=== PATIENT | female | born 1975 | race Caucasian/White ===

== ENCOUNTER 2019-05-29 09:35 | Emergency (ER) | payer MEDICAID ==
[2019-05-29 09:50] VITALS: BP 147/95
[2019-05-29] MEDS ORDERED: PROPARACAINE 0.5% OPHTH DROPS 15 ML LEFTEYE STA (11:25)
--- NOTE | 2019-05-29 12:20 | ED Physician Documentation ---
PD HPI OPHTHO - Stated complaint Stated Complaint: LT EYE PX - Chief complaint Chief Complaint: Heent - History obtained from History obtained from: Patient (43-year-old woman with 1 week history of redness and irritation as well as light sensitivity of the left eye only. Its not associated with a foreign body sensation or URI symptoms. Photophobia is prominent. There was no trauma. She does not wear contacts. Her vision is unaffected. There is not much discharge.) Review of Systems Constitutional: denies: Fever, Chills Eyes: reports: Photophobia, Irritation. denies: Loss of vision, Decreased vision, Discharge Ears: denies: Loss of hearing, Ear pain, Drainage/discharge Nose: denies: Rhinorrhea / runny nose, Congestion PD PAST MEDICAL HISTORY - Past Medical History Past Medical History: Yes - Present Medications Home Medications: Ambulatory Orders Medication Instructions Recorded Confirmed Hydrocodone/Acetaminophen 1 - 2 each PO Q6H PRN #7 tablet 05/29/19 [Hydrocodon-Acetaminophen 5-325] prednisoLONE 1% OPHTH DROPS [Pred 1 drops LEFTEYE QID #1 bottle 05/29/19 Forte 1% Ophth Drops] - Allergies Allergies/Adverse Reactions: Allergies Allergy/AdvReac Type Severity Reaction Status Date / Time No Known Drug Allergies Allergy Verified 05/29/19 09:49 - Social History Does the pt smoke?: No Smoking Status: Never smoker PD ED PE NORMAL - Vitals Vital signs reviewed: Yes - General General: Alert and oriented X 3, No acute distress - HEENT HEENT: Other (Pupils are equally round and reactive to light extraocular movements are intact. She has no consensual photophobia. She does have a ciliary flush. Quintin-Pen is 27. There is no fluoresein uptake. No cell or flare on slit lamp exam.) - Neuro Neuro: Alert and oriented X 3, Normal speech Results - Vitals Vitals: Vital Signs - 24 hr 05/29/19 09:48 Temperature 36.4 C L Heart Rate 78 Respiratory 18 Rate Blood Pressure 147/95 H O2 Saturation 100 PD MEDICAL DECISION MAKING - ED course ED course: Presentation most consistent with very mild or early uveitis. There is no cell or flare but it seems more pronounced than just a simple conjunctivitis. Quintin- Pen is slightly elevated but it is inconsistent with symptomatic acute angle- closure glaucoma as the level is too low. Her pupil was also reactive. She is started on Pred forte and cyclopentolate and asked to see an sand system operator tomorrow Departure - Departure Disposition: 01 Home, Self Care Clinical Impression: Uveitis of left eye Condition: Good Record reviewed to determine appropriate education?: Yes Instructions: ED Uveitis Follow-Up: Rick Davila MD [Provider Admit Priv/Credential] - Tomorrow Prescriptions: Hydrocodone/Acetaminophen [Hydrocodon-Acetaminophen 5-325] 1 - 2 each PO Q6H PRN #7 tablet PRN Reason: pain prednisoLONE 1% OPHTH DROPS [Pred Forte 1% Ophth Drops] 1 drops LEFTEYE QID #1 bottle Comments: The presentation is most consistent with uveitis. I would like you to see an eye doctor tomorrow to confirm and clarify the ongoing treatment. Call Dr. Davila's office at 8 AM tomorrow. Return for new worsening symptoms.
[2019-05-29] MEDS ORDERED: prednisoLONE 1% OPHTH DROPS 75 DROPS/5 ML BOTTLE LEFTEYE STA (12:36)
[2019-05-29] MEDS ORDERED: CYCLOPENTOLATE 1% OPHTH DROPS 2 ML LEFTEYE ONE (12:36)
== END 2019-05-29 13:09 | disposition home or self-care (01) ==
LOC: ED 09:35
DX: H20.9 Unspecified iridocyclitis (principal)
CPT/HCPCS: 99282; 99283; A9270; J3490

== ENCOUNTER 2019-08-31 06:35 | Emergency (ER) | payer MEDICAID ==
--- NOTE | 2019-08-31 07:06 | ED Physician Documentation ---
PD HPI SKIN - Stated complaint Stated Complaint: BUTTOCK SORE - Chief complaint Chief Complaint: Wound - History obtained from History obtained from: Patient - History of Present Illness Timing - onset: How many weeks ago (She noted onset of area of redness and swelling on the right gluteal area and then another one starting on the left and then a third 1 starting just yesterday. These are sites where she had done injection of heroin. She states she had used clean needles she thought but did reuse Bernardo couple of times. She does not clean her skin ahead of time necessarily. The initial infection area has gotten much more painful and swollen without any drainage. She denies systemic symptoms of fever chills nausea vomiting or aches) Timing - duration: Weeks (1) Timing - details: Gradual onset, Still present Location: Other (both buttocks, right worse than left.) Quality / character: Painful, Discolored, Swelling. No: Draining Associated symptoms: Myalgias. No: Fever Contributing factors: Other (subcut/IM injecting of heroin herself.). No: Recent illness Similar symptoms before: Has not had sx before Review of Systems Constitutional: reports: Myalgias. denies: Fever, Chills, Fatigue Cardiac: denies: Chest pain / pressure, Palpitations Respiratory: denies: Dyspnea, Cough GI: denies: Abdominal Pain, Nausea, Vomiting PD PAST MEDICAL HISTORY - Past Medical History Past Medical History: No - Present Medications Home Medications: Ambulatory Orders Medication Instructions Recorded Confirmed Hydrocodone/Acetaminophen 1 - 2 each PO Q6H PRN #7 tablet 05/29/19 [Hydrocodon-Acetaminophen 5-325] prednisoLONE 1% OPHTH DROPS [Pred 1 drops LEFTEYE QID #1 bottle 05/29/19 Forte 1% Ophth Drops] Chlorhexidine Gluconate [Hibiclens] 15 ml TP DAILY #236 ml 08/31/19 Sulfamethox/Trimeth 800/160 1 each PO BID #14 tablet 08/31/19 [Bactrim Ds 800/160] - Allergies Allergies/Adverse Reactions: Allergies Allergy/AdvReac Type Severity Reaction Status Date / Time No Known Drug Allergies Allergy Verified 05/29/19 09:49 - Social History Does the pt smoke?: No Smoking Status: Never smoker PD ED PE NORMAL - Vitals Vital signs reviewed: Yes - General General: Alert and oriented X 3, No acute distress (but has marked tenderness of right gluteal abscess. Less so left gluteal. ), Well developed/nourished - Cardiac Cardiac: RRR, No murmur - Respiratory Respiratory: Clear bilaterally - Abdomen Abdomen: Soft, Non tender - Derm Derm: Normal color, Warm and dry, Other (gluteal with 3 sites of infection. Worst is right buttock laterally with firm, raised, tender area of infection, feels like abscess, 3-4 cm diameter, with redness and swelling surrounding that as well. Left lateral gluteal area with smaller but still raised and fluctuant area of tenderness, with also surrounding redness/swelling. Anterior to that is a nonfluctuant, red, tender area of inflammation and warmth. ) Results - Vitals Vitals: Vital Signs - 24 hr 08/31/19 08/31/19 06:37 08:06 Temperature 36.6 C 36.5 C Heart Rate 85 79 Respiratory 15 17 Rate Blood Pressure 131/79 H 128/82 H O2 Saturation 100 99 Oxygen O2 Source Room air - Labs Labs: Microbiology 08/31/19 07:46 Wound Culture - Preliminary Buttock - Right Procedures - Abscess I&D (location) buttocks both sides Preparation: Confirmed with ultrasound, Lidocaine 1%, With epi, Other (IM meds for pain ahead of it.) Incision: Incised with scalpel, Purulent drainage, Irrigated, Culture obtained. No: Packed Other: Pt tolerated well, Dressing applied, Antibiotic prescribed PD MEDICAL DECISION MAKING - ED course Complexity details: considered differential (She has 3 separate infection sites, 2 of which have local abscess formation and I did an incision and drainage. She states she just started skin popping for the heroin use. I asked if she wanted social work to talk with her about program information and resources but she said she knew of a treatment program already but was not sure if she was quite ready to stop. I encouraged her to stop heroin use.), d/w patient Departure - Departure Disposition: 01 Home, Self Care Clinical Impression: Abscess of buttock Condition: Stable Record reviewed to determine appropriate education?: Yes Instructions: ED Abscess IandD Prescriptions: Chlorhexidine Gluconate [Hibiclens] 15 ml TP DAILY #236 ml Sulfamethox/Trimeth 800/160 [Bactrim Ds 800/160] 1 each PO BID #14 tablet Comments: Cleanse the infection areas couple of times a day with soap and water. You can soak in warm water as well and today and tomorrow try to promote drainage from t he incision holes. Bactrim antibiotic twice daily for a week. Recheck if not improved well over the next couple of days. Chlorhexidine body wash from head to toe in the shower to reduce germs on the surface overall. Particular cleansing in the infection areas. Seek assistance for drug cessation. Discharge Date/Time: 08/31/19 08:20
[2019-08-31] MEDS ORDERED: oxyCODONE 5 MG TABLET PO STA (07:16)
[2019-08-31] MEDS ORDERED: IBUPROFEN 800 MG TABLET PO STA (07:16)
[2019-08-31] MEDS ORDERED: SULFAMETH/TRIMETH DS 800/160 MG TABLET PO STA (07:17)
[2019-08-31 08:08] VITALS: BP 128/82
== END 2019-08-31 08:20 | disposition home or self-care (01) ==
LOC: ED 06:35
DX: L02.31 Cutaneous abscess of buttock (principal)
CPT/HCPCS: 10060; 87070; 87181; 87205; 99283; 99284; A9270; 10061

== ENCOUNTER 2021-09-24 17:41 | Outpatient (CLI) | payer SELFPAY | END 2021-09-24 17:42 | disposition left against medical advice (07) | LOC: EMS 17:41 | DX: T40.1X1A Poisoning by heroin, accidental (unintentional), initial encounter (principal) ==